=== PATIENT | female | born 1975 | race Asian ===

== ENCOUNTER 2022-06-26 10:10 | Emergency (ER) | payer MEDICARE, OTHER, MEDICAID, SELFPAY ==
[2022-06-26 10:14] VITALS: BP 163/81; PULSE 98; RESP 17; TEMP 36.8; O2SAT 97; BMI 38.9
[2022-06-26 10:46] LABS: COVID19 -Nasal RAPID Negative (Negative)
--- NOTE | 2022-06-26 11:03 | DI.RAD.S_ITS ---
PROCEDURE: XR CHEST 2V INDICATIONS: cough x 1 week TECHNIQUE: 2 views of the chest were acquired. COMPARISON: None. FINDINGS: Surgical changes and devices: None. Lungs and pleura: Lungs are clear. No pleural effusions or pneumothorax. Mediastinum: Mediastinal contours are normal. Heart size is normal. Bones and chest wall: No suspicious bony abnormalities. Soft tissues appear unremarkable. IMPRESSION: No acute pulmonary process. Dictated by: Ina Weller M.D. on 06/26/2022 at 11:32 Approved by: Ina Weller M.D. on 06/26/2022 at 11:32
--- NOTE | 2022-06-26 11:03 | ED.URI ---
HPI - URI/Sore Throat General Chief Complaint: Upper Respiratory Symptoms Stated Complaint: Bad Cough for a Week Time Seen by Provider: 06/26/22 10:54 Source: patient Mode of arrival: Ambulatory History of Present Illness HPI Narrative: Patient is a 46-year-old female history of diabetes presenting today with cough ongoing for about 1 week. Nonproductive worse at night. No shortness of breath or fever. Here with mother who seems to be primary historian. She denies any sore throat. She does have a significant runny nose that is definitely worse at night. No one else has been sick. Related Data Home Medications Medication Instructions Recorded Confirmed aspirin 81 mg tablet,delayed 81 mg PO DAILY 02/01/19 12/10/21 release (Adult Low Dose Aspirin) glipizide 10 mg tablet 10 mg PO DAILY 02/01/19 12/10/21 multivitamin 1 tab PO DAILY 02/01/19 12/10/21 omega-3 fatty acids [Fish Oil PO 02/01/19 12/10/21 Concentrate] sitagliptin 50 mg tablet (Januvia) 100 mg PO DAILY 02/01/19 12/10/21 Respironics Dreamstation CPAP #1 ea 07/07/19 12/10/21 Allergies Allergy/AdvReac Type Severity Reaction Status Date / Time tree and shrub pollen AdvReac Runny Nose Verified 06/26/22 10:19 and Watery Eyes wool AdvReac Red spots Verified 06/26/22 10:19 and Itching Review of Systems Review of Systems Narrative: GENERAL: Denies chills, fatigue, malaise, fever, sweats, travel HEENT: Denies sinus pain, ear pain, sore throat, difficulty swallowing, neck pain RESPIRATORY: See HPI CARDIOVASCULAR: Denies chest pain, palpitations, orthopnea, edema GASTROINTESTINAL: Denies nausea, vomiting, abdominal pain, diarrhea, constipation, melena. : Denies dysuria, frequency, incontinence, hematuria, urinary retention, flank pain. MUSCULOSKELETAL: Denies weakness, joint pain, or bony pain SKIN: No rash, no erythema, no pruritus NEUROLOGIC: Denies weakness, dizziness, headache, numbness, change in speech, confusion PSYCHIATRIC: No concerning psychosocial issues. 12 point review of systems is negative except for those stated above and HPI Patient History Medical History Excessive daytime sleepiness Obesity (BMI 30-39.9) Obstructive sleep apnea Snoring Type 2 diabetes mellitus Social History Smoking Status: Never smoker Smoking Status: Never smoker alcohol intake frequency: 0-2 drinks per day Substance Use Type: does not use Exam Initial Vital Signs Initial Vital Signs: Vital Signs Temperature 98.2 F 06/26/22 10:14 Pulse Rate 98 H 06/26/22 10:14 Respiratory Rate 17 06/26/22 10:14 Blood Pressure 163/81 H 06/26/22 10:14 Pulse Oximetry 97 06/26/22 10:14 Oxygen Delivery Method 06/26/22 10:14 GENERAL: Alert pleasant 46-year-old female and in no acute distress. HEENT: Head atraumatic,EOMI, pupils reactive, face symmetric, moist mucous membranes CARDIOVASCULAR: Regular rate and rhythm without murmurs, rubs or gallops. RESPIRATORY: Breath sounds equal bilaterally, no wheezes rales or rhonchi. ABDOMEN: Soft, nontender. Normoactive bowel sounds all 4 quadrants. No guarding or rebound. EXTREMITIES: Normal range of motion, no clubbing or edema. Neurovascularly intact NEUROLOGICAL: Alert and oriented x4.N SKIN: Warm, dry, no laceration, no petechiae, no rashes or lesions. Course Orders Ordered: ED Orders 06/26/22 10:15 COVID19 -Nasal RAPID/Pre-Proc Stat 06/26/22 11:03 Chest [XR chest 2V] Stat Vital Signs Vital signs: Vital Signs - 8 hr 06/26/22 10:14 06/26/22 11:38 06/26/22 11:40 Temperature 98.2 F Pulse Rate 98 H 88 92 H Respiratory Rate 17 18 Blood Pressure 163/81 H 163/81 H 154/91 H Pulse Oximetry 97 97 97 Oxygen Delivery Method Room Air Room Air Room Air MDM - URI/Sore Throat Lab Data Labs: Lab Results 06/26/22 Range/Units 10:15 SARS-CoV-2 (PCR) Negative (Negative) Imaging Data Chest x-ray: Radiologist's Impression: XRay Report Signed Patient: Nayely Alegria MR#: [id number] : 1975 Acct:[id number] Age/Sex: 46 / F Date of Service: 06/26/22 Loc: ED Accession Number: [id number] ?? Procedure: XR chest 2V Ordering Provider: Monica Green D.O. PROCEDURE:? XR CHEST 2V ? INDICATIONS:? cough x 1 week ? TECHNIQUE:? 2 views of the chest were acquired.? ? COMPARISON:? None. ? FINDINGS:? ? Surgical changes and devices:? None.? ? Lungs and pleura:? Lungs are clear.? No pleural effusions or pneumothorax.? ? Mediastinum:? Mediastinal contours are normal.? Heart size is normal.? ? Bones and chest wall:? No suspicious bony abnormalities.? Soft tissues appear unremarkable.? ? IMPRESSION:? No acute pulmonary process. ? ? Dictated by: Ina Weller M.D. on 06/26/2022 at 11:32 ? ? Approved by: Ina Weller M.D. on 06/26/2022 at 11:32 ? MDM Narrative Medical decision making narrative: Patient has no acute signs of respiratory distress. COVID test is negative says her cough gets worse at night it might be RSV. X-ray does not show any evidence of pneumonia. Probable upper respiratory virus supportive care only. Discharge Plan Departure Patient Disposition: Home Clinical Impression: Viral infection Instructions: DI for Respiratory Distress Syndrome -- Adult Activity Restrictions/Additional Instructions: *You have been diagnosed with respiratory virus *What to do: At this time you may try [id number] Benadryl or allergy medicine to see if that helps dry up some secretions. No pneumonia or COVID at this time. Be sure to stay hydrated *Continue to take medications as directed Tylenol or ibuprofen as directed if needed for pain or fever Benadryl 25-50 mg at nighttime to help with sleeping and cough *Follow up with your primary care provider in 2-3 days or call [phone] *Return to ER if you should have increased shortness of breath cough fever or any new, worsening or concerning symptoms Prescriptions: No Action multivitamin tablet 1 tab PO DAILY glipizide 10 mg tablet 10 mg PO DAILY aspirin [Adult Low Dose Aspirin] 81 mg tablet,delayed release (DR/EC) 81 mg PO DAILY Januvia 50 mg tablet 100 mg PO DAILY omega-3 fatty acids PO (DME) [employer] Dreamstation CPAP Qty: 1 Rx Instructions: Pressure: 6-16 cmH2O DME: [facility] Referrals: Christina Bowman DO [Primary Care Provider] - Visit Report Forms: Patient Portal/API
[2022-06-26 11:38] VITALS: BP 163/81; PULSE 88; RESP 18; O2SAT 97
[2022-06-26 11:40] VITALS: BP 154/91; PULSE 92; O2SAT 97
== END 2022-06-26 11:41 | disposition home or self-care (01) ==
PROVIDERS: Emergency Provider Emergency Medicine; PCP Family Medicine
DX: B34.9 Viral infection, unspecified (principal); Z20.822 Contact with and (suspected) exposure to COVID-19
CPT/HCPCS: 71046; 87635; 99283; C9803

== ENCOUNTER 2022-07-22 01:58 | Emergency (ER) | payer MEDICARE, OTHER, MEDICAID, SELFPAY ==
[2022-07-22 02:37] VITALS: BP 153/87; PULSE 133; RESP 24; TEMP 37.2; O2SAT 97; BMI 36.0
--- NOTE | 2022-07-22 03:52 | ED.PSYCH ---
HPI - Psych <Nikko Hunter DO - Last Filed: 07/23/22 02:44> General Chief Complaint: Psychiatric Symptoms Stated Complaint: SI Time Seen by Provider: 07/22/22 02:07 Source: patient and family Mode of arrival: Ambulatory History of Present Illness HPI Narrative: 46-year-old female nonsmoker with history of diabetes and schizophrenia presents with both parents and a chief complaint of increasingly intrusive auditory and visual hallucinations over the past week or so. She had been relatively stable on her medications but for some reason over the past week or so she is had increasing hallucinations, she states she hears for different voices and thankfully they do not tell her to hurt herself or anybody else. She is not suicidal or homicidal but is becoming significantly affected by the voices, she can not sleep and has not been eating because of the distress it is causing her. She is been taking her medications as prescribed and states that about a week ago or perhaps less she was put on clonidine that does not seem to be making any difference. She had previously been on Abilify but that did not work either. Related Data Home Medications Medication Instructions Recorded Confirmed aspirin 81 mg tablet,delayed 81 mg PO DAILY 02/01/19 12/10/21 release (Adult Low Dose Aspirin) glipizide 10 mg tablet 10 mg PO DAILY 02/01/19 12/10/21 multivitamin 1 tab PO DAILY 02/01/19 12/10/21 omega-3 fatty acids [Fish Oil PO 02/01/19 12/10/21 Concentrate] sitagliptin 50 mg tablet (Januvia) 100 mg PO DAILY 02/01/19 12/10/21 Respironics Dreamstation CPAP #1 ea 07/07/19 12/10/21 Previous Rx's Medication Instructions Recorded olanzapine 10 mg tablet (Zyprexa) 10 mg PO BID PRN Hallucination #30 07/22/22 tabs Allergies Allergy/AdvReac Type Severity Reaction Status Date / Time tree and shrub pollen AdvReac Runny Nose Verified 06/26/22 10:19 and Watery Eyes wool AdvReac Red spots Verified 06/26/22 10:19 and Itching Review of Systems <DO Jus Singh Last Filed: 07/23/22 02:44> Review of Systems Narrative: GENERAL: Denies chills, fatigue, malaise, fever, sweats. HEENT: Denies sinus pain, ear pain, sore throat, difficulty swallowing, dizziness. RESPIRATORY: Denies dyspnea, cough, wheezing, hemoptysis, sputum. CARDIOVASCULAR: Denies chest pain, palpitations, orthopnea, edema, GASTROINTESTINAL: Denies nausea, vomiting, abdominal pain, diarrhea, constipation, melena. : Denies dysuria, frequency, incontinence, hematuria, urinary retention. MUSCULOSKELETAL: denies weakness, joint pain, or bony pain SKIN: Denies rash, skin lesions, or other NEUROLOGIC: Denies weakness, headache, numbness, change in speech, confusion, seizures, incoordination. PSYCHIATRIC: See HPI 12 point review of systems is negative except for those stated above Patient History <Nikko Hunter DO - Last Filed: 07/23/22 02:44> Medical History Excessive daytime sleepiness Obesity (BMI 30-39.9) Obstructive sleep apnea Snoring Type 2 diabetes mellitus Social History Smoking Status: Never smoker Smoking Status: Never smoker alcohol intake frequency: 0-2 drinks per day Substance Use Type: does not use Exam <Nikko Hunter DO - Last Filed: 07/23/22 02:44> Narrative Exam Narrative: GENERAL: [46] year old patient appears stated age. Well-developed patient, in mild distress. Tearful, anxious, clearly upset HEAD: Atraumatic. Normocephalic. EYES: Pupils equal round and reactive. Extraocular motions intact. No scleral icterus. No injection or drainage. ENT: Nose without bleeding, purulent drainage. Throat without erythema, tonsillar hypertrophy or exudate. Airway patent. NECK: Trachea midline. Non tender CARDIOVASCULAR: Regular rate and rhythm without murmurs, gallops, or rubs. RESPIRATORY: Clear to auscultation. Breath sounds equal bilaterally. No wheezes, rales, or rhonchi. GASTROINTESTINAL: Abdomen soft, non-tender, nondistended. EXTREMITIES: No edema or joint tenderness. BACK: Nontender without deformity or crepitance. No flank tenderness. NEURO: AOx3. SKIN: No rash or erythema of visible areas Initial Vital Signs Initial Vital Signs: Vital Signs Temperature 98.9 F 07/22/22 02:37 Pulse Rate 133 H 07/22/22 02:37 Respiratory Rate 24 07/22/22 02:37 Blood Pressure 153/87 H 07/22/22 02:37 Pulse Oximetry 97 07/22/22 02:37 Oxygen Delivery Method 07/22/22 02:37 <Yamil Pitts DO - Last Filed: 07/22/22 17:58> Initial Vital Signs Initial Vital Signs: Vital Signs Temperature 98.9 F 07/22/22 02:37 Pulse Rate 133 H 07/22/22 02:37 Respiratory Rate 24 07/22/22 02:37 Blood Pressure 153/87 H 07/22/22 02:37 Pulse Oximetry 97 07/22/22 02:37 Oxygen Delivery Method 07/22/22 02:37 Course <Nikko Hunter DO - Last Filed: 07/23/22 02:44> Orders Ordered: Discontinued Medications Olanzapine (Olanzapine Odt 10 Mg Tab) 10 mg PO NOW ONE Stop: 07/22/22 04:04 Last Admin: 07/22/22 04:14 Dose: 10 mg Documented By: SB Vital Signs Vital signs: Vital Signs - 8 hr 07/22/22 13:26 Temperature 98.1 F Pulse Rate 89 Respiratory Rate 19 Blood Pressure 111/71 Pulse Oximetry 98 Oxygen Delivery Method Room Air <Yamil Pitts DO - Last Filed: 07/22/22 17:58> Orders Ordered: Discontinued Medications Olanzapine (Olanzapine Odt 10 Mg Tab) 10 mg PO NOW ONE Stop: 07/22/22 04:04 Last Admin: 07/22/22 04:14 Dose: 10 mg Documented By: SB Vital Signs Vital signs: Vital Signs - 8 hr 07/22/22 13:26 Temperature 98.1 F Pulse Rate 89 Respiratory Rate 19 Blood Pressure 111/71 Pulse Oximetry 98 Oxygen Delivery Method Room Air MDM - Psych <Nikko Hunter DO - Last Filed: 07/23/22 02:44> Lab Data Result diagrams: 07/22/22 03:50 07/22/22 03:50 Labs: Lab Results 07/22/22 07/22/22 07/22/22 Range/Units 03:50 03:50 09:35 WBC 12.0 H (4.5-11.0) X10^3/uL RBC 6.22 H (4.0-5.2) X10^6/uL Hgb 15.0 (12.0-16.0) g/dL Hct 45.7 (36-46) % MCV 73.6 L (80-100) fL MCH 24.1 L (26-34) PG MCHC 32.7 (30-36) % RDW 13.4 (11.6-14.8) % Plt Count 320 (150-400) X10^3/uL Neut % (Auto) 75.0 (50-75) % Lymph % (Auto) 16.3 L (25-40) % [place] % (Auto) 6.9 (3-14) % Eos % (Auto) 1.5 L (2-4) % Baso % (Auto) 0.3 (0-2) % Neut # (Auto) 9000 H (9718-4748) /uL Lymph # (Auto) 2000 (4250-0906) /uL [place] # (Auto) 800 (0-900) /uL Eos # (Auto) 200 (0-450) /uL Baso # (Auto) 0 (0-100) /uL Sodium 138 (137-145) mmol/L Potassium 3.7 (3.4-5.1) mmol/L Chloride 103 (98-107) mmol/L Carbon Dioxide 21 L (22-32) mmol/L BUN 15 (7-17) mg/dL Creatinine 0.70 (0.52-1.04) mg/dL Estimated GFR > 60 (>60) mL/min BUN/Creatinine Ratio 21.4 (6-22) Glucose 242 H (70-100) mg/dL Calcium 9.4 (8.4-10.2) mg/dL Total Bilirubin 0.5 (0.2-1.3) mg/dL AST 20 (14-36) IU/L ALT 21 (<35) IU/L Alkaline Phosphatase 92 (38-126) U/L Total Protein 8.3 H (6.3-8.2) g/dL Albumin 4.7 (3.5-5.0) g/dL Globulin 3.6 (1.7-4.1) g/dL Albumin/Globulin Ratio 1.3 (1.0-2.8) Urine RBC (0-5/HPF) Urine WBC (0-5/HPF) Ur Squamous Epith Cells (0-5/HPF) Urine Bacteria (None) Urine Yeast (None) U Opiates 300ng/mL cut Negative (Negative) Ur Oxycodone Screen Negative (Negative) Urine Methadone Screen Negative (Negative) Ur Barbiturates Screen Negative (Negative) U Tricyclic Antidepress Negative (Negative) Ur Phencyclidine Scrn Negative (Negative) Ur Amphetamines Screen Negative (Negative) U Methamphetamines Scrn Negative (Negative) Ur MDMA Scrn (Ecstasy) Negative (Negative) U Benzodiazepines Scrn Negative (Negative) Urine Cocaine Screen Negative (Negative) U Marijuana (THC) Screen Negative (Negative) Ethyl Alcohol < 10 ( - 10) mg/dL 07/22/22 Range/Units 09:35 WBC (4.5-11.0) X10^3/uL RBC (4.0-5.2) X10^6/uL Hgb (12.0-16.0) g/dL Hct (36-46) % MCV (80-100) fL MCH (26-34) PG MCHC (30-36) % RDW (11.6-14.8) % Plt Count (150-400) X10^3/uL Neut % (Auto) (50-75) % Lymph % (Auto) (25-40) % [place] % (Auto) (3-14) % Eos % (Auto) (2-4) % Baso % (Auto) (0-2) % Neut # (Auto) (2633-9118) /uL Lymph # (Auto) (5434-5159) /uL [place] # (Auto) (0-900) /uL Eos # (Auto) (0-450) /uL Baso # (Auto) (0-100) /uL Sodium (137-145) mmol/L Potassium (3.4-5.1) mmol/L Chloride (98-107) mmol/L Carbon Dioxide (22-32) mmol/L BUN (7-17) mg/dL Creatinine (0.52-1.04) mg/dL Estimated GFR (>60) mL/min BUN/Creatinine Ratio (6-22) Glucose (70-100) mg/dL Calcium (8.4-10.2) mg/dL Total Bilirubin (0.2-1.3) mg/dL AST (14-36) IU/L ALT (<35) IU/L Alkaline Phosphatase (38-126) U/L Total Protein (6.3-8.2) g/dL Albumin (3.5-5.0) g/dL Globulin (1.7-4.1) g/dL Albumin/Globulin Ratio (1.0-2.8) Urine RBC 1-5/hpf (0-5/HPF) Urine WBC 10-30/hpf H (0-5/HPF) Ur Squamous Epith Cells 1-5 /hpf (0-5/HPF) Urine Bacteria Moderate (10-30) H (None) Urine Yeast 0-1/hpf (None) U Opiates 300ng/mL cut (Negative) Ur Oxycodone Screen (Negative) Urine Methadone Screen (Negative) Ur Barbiturates Screen (Negative) U Tricyclic Antidepress (Negative) Ur Phencyclidine Scrn (Negative) Ur Amphetamines Screen (Negative) U Methamphetamines Scrn (Negative) Ur MDMA Scrn (Ecstasy) (Negative) U Benzodiazepines Scrn (Negative) Urine Cocaine Screen (Negative) U Marijuana (THC) Screen (Negative) Ethyl Alcohol ( - 10) mg/dL Point of Care Testing Test Results Negative Urine Dip Bedside Urine Glucose 1000 mg/dl Bedside Urine Bilirubin - Negative Bedside Urine Ketone +++ 80 Urine Specific [place] 1.020 Bedside Urine Occult Blood +++ Bedside Urine pH 5.5 Bedside Urine Protein - Negative Bedside Urine Urobilinogen - Negative Bedside Urine Nitrite - Negative Bedside Urine Leukocytes - Negative Esterase <Yamil Pitts, DO - Last Filed: 07/22/22 17:58> Lab Data Labs: Lab Results 07/22/22 07/22/22 07/22/22 Range/Units 03:50 03:50 09:35 WBC 12.0 H (4.5-11.0) X10^3/uL RBC 6.22 H (4.0-5.2) X10^6/uL Hgb 15.0 (12.0-16.0) g/dL Hct 45.7 (36-46) % MCV 73.6 L (80-100) fL MCH 24.1 L (26-34) PG MCHC 32.7 (30-36) % RDW 13.4 (11.6-14.8) % Plt Count 320 (150-400) X10^3/uL Neut % (Auto) 75.0 (50-75) % Lymph % (Auto) 16.3 L (25-40) % [place] % (Auto) 6.9 (3-14) % Eos % (Auto) 1.5 L (2-4) % Baso % (Auto) 0.3 (0-2) % Neut # (Auto) 9000 H (8864-4560) /uL Lymph # (Auto) 2000 (8538-1833) /uL [place] # (Auto) 800 (0-900) /uL Eos # (Auto) 200 (0-450) /uL Baso # (Auto) 0 (0-100) /uL Sodium 138 (137-145) mmol/L Potassium 3.7 (3.4-5.1) mmol/L Chloride 103 (98-107) mmol/L Carbon Dioxide 21 L (22-32) mmol/L BUN 15 (7-17) mg/dL Creatinine 0.70 (0.52-1.04) mg/dL Estimated GFR > 60 (>60) mL/min BUN/Creatinine Ratio 21.4 (6-22) Glucose 242 H (70-100) mg/dL Calcium 9.4 (8.4-10.2) mg/dL Total Bilirubin 0.5 (0.2-1.3) mg/dL AST 20 (14-36) IU/L ALT 21 (<35) IU/L Alkaline Phosphatase 92 (38-126) U/L Total Protein 8.3 H (6.3-8.2) g/dL Albumin 4.7 (3.5-5.0) g/dL Globulin 3.6 (1.7-4.1) g/dL Albumin/Globulin Ratio 1.3 (1.0-2.8) Urine RBC (0-5/HPF) Urine WBC (0-5/HPF) Ur Squamous Epith Cells (0-5/HPF) Urine Bacteria (None) Urine Yeast (None) U Opiates 300ng/mL cut Negative (Negative) Ur Oxycodone Screen Negative (Negative) Urine Methadone Screen Negative (Negative) Ur Barbiturates Screen Negative (Negative) U Tricyclic Antidepress Negative (Negative) Ur Phencyclidine Scrn Negative (Negative) Ur Amphetamines Screen Negative (Negative) U Methamphetamines Scrn Negative (Negative) Ur MDMA Scrn (Ecstasy) Negative (Negative) U Benzodiazepines Scrn Negative (Negative) Urine Cocaine Screen Negative (Negative) U Marijuana (THC) Screen Negative (Negative) Ethyl Alcohol < 10 ( - 10) mg/dL 07/22/22 Range/Units 09:35 WBC (4.5-11.0) X10^3/uL RBC (4.0-5.2) X10^6/uL Hgb (12.0-16.0) g/dL Hct (36-46) % MCV (80-100) fL MCH (26-34) PG MCHC (30-36) % RDW (11.6-14.8) % Plt Count (150-400) X10^3/uL Neut % (Auto) (50-75) % Lymph % (Auto) (25-40) % [place] % (Auto) (3-14) % Eos % (Auto) (2-4) % Baso % (Auto) (0-2) % Neut # (Auto) (7924-8693) /uL Lymph # (Auto) (2285-0287) /uL [place] # (Auto) (0-900) /uL Eos # (Auto) (0-450) /uL Baso # (Auto) (0-100) /uL Sodium (137-145) mmol/L Potassium (3.4-5.1) mmol/L Chloride (98-107) mmol/L Carbon Dioxide (22-32) mmol/L BUN (7-17) mg/dL Creatinine (0.52-1.04) mg/dL Estimated GFR (>60) mL/min BUN/Creatinine Ratio (6-22) Glucose (70-100) mg/dL Calcium (8.4-10.2) mg/dL Total Bilirubin (0.2-1.3) mg/dL AST (14-36) IU/L ALT (<35) IU/L Alkaline Phosphatase (38-126) U/L Total Protein (6.3-8.2) g/dL Albumin (3.5-5.0) g/dL Globulin (1.7-4.1) g/dL Albumin/Globulin Ratio (1.0-2.8) Urine RBC 1-5/hpf (0-5/HPF) Urine WBC 10-30/hpf H (0-5/HPF) Ur Squamous Epith Cells 1-5 /hpf (0-5/HPF) Urine Bacteria Moderate (10-30) H (None) Urine Yeast 0-1/hpf (None) U Opiates 300ng/mL cut (Negative) Ur Oxycodone Screen (Negative) Urine Methadone Screen (Negative) Ur Barbiturates Screen (Negative) U Tricyclic Antidepress (Negative) Ur Phencyclidine Scrn (Negative) Ur Amphetamines Screen (Negative) U Methamphetamines Scrn (Negative) Ur MDMA Scrn (Ecstasy) (Negative) U Benzodiazepines Scrn (Negative) Urine Cocaine Screen (Negative) U Marijuana (THC) Screen (Negative) Ethyl Alcohol ( - 10) mg/dL Point of Care Testing Test Results Negative Urine Dip Bedside Urine Glucose 1000 mg/dl Bedside Urine Bilirubin - Negative Bedside Urine Ketone +++ 80 Urine Specific [place] 1.020 Bedside Urine Occult Blood +++ Bedside Urine pH 5.5 Bedside Urine Protein - Negative Bedside Urine Urobilinogen - Negative Bedside Urine Nitrite - Negative Bedside Urine Leukocytes - Negative Esterase MDM Narrative Medical decision making narrative: Dr pitts: Received turned over. Reviewed patient's history and physical and labs. She is medically cleared. She does state that she is feeling better after the Zyprexa. Has been seen by social work. Decisions made not to admit to the hospital. Will sent home with a prescription of Zyprexa. She is a follow-up with her mental health provider in approximately 2 weeks. She is being discharged with family. We discussed return precautions and follow-up instructions. Patient expressed understanding and agreement. Family at bedside for the discussion and they are in agreement as well. Discharge Plan Departure Patient Disposition: Home Clinical Impression: Hallucinations Instructions: DI for Schizophrenia Activity Restrictions/Additional Instructions: Continue to take all of your medications as directed use the new medication as needed. It is important that you follow-up with your mental health provider as previously scheduled. Return to the emergency department for any new or worsening symptoms. Prescriptions: New olanzapine [Zyprexa] 10 mg tablet 10 mg PO BID PRN (Reason: Hallucination) Qty: 30 0RF No Action multivitamin tablet 1 tab PO DAILY glipizide 10 mg tablet 10 mg PO DAILY aspirin [Adult Low Dose Aspirin] 81 mg tablet,delayed release (DR/EC) 81 mg PO DAILY Januvia 50 mg tablet 100 mg PO DAILY omega-3 fatty acids PO (DME) [employer] Dreamstation CPAP Qty: 1 Rx Instructions: Pressure: 6-16 cmH2O DME: [facility] Referrals: Christina Bowman DO [Primary Care Provider] - Visit Report Forms: Patient Portal/API
--- NOTE | 2022-07-22 04:11 | PC.NURSE ---
Dad leaving for the evening - allowed to bring the patient's dog to the bedside to say shaka - per family and patient, the dog helps to calm her and keep her calm
[2022-07-22] MEDS: OLANZapine ODT 10 MG TAB PO (04:14)
[2022-07-22 04:15] LABS: Add Manual Diff / Slide Review NO; Basophils Absolute Auto 0 /uL (0-100); Basophils Percent Auto 0.3 % (0-2); Eosinophils Absolute Auto 200 /uL (0-450); Eosinophils Percent Auto 1.5 % (2-4); Hematocrit 45.7 % (36-46); Lymphocytes Absolute Auto 2000 /uL (1100-4500); Lymphocytes Percent Auto 16.3 % (25-40); Mean Corpuscular HGB Conc 32.7 % (30-36); Mean Corpuscular Hemoglobin 24.1 PG (26-34); Mean Corpuscular Volume 73.6 fL (80-100); Monocytes Absolute Auto 800 /uL (0-900); Monocytes Percent Auto 6.9 % (3-14); Neutrophils Absolute Auto 9000 /uL (1500-7000); Platelet Count 320 X10^3/uL (150-400); Red Blood Cell Count 6.22 X10^6/uL (4.0-5.2); Red Cell Distribution Width 13.4 % (11.6-14.8)
[2022-07-22 04:31] LABS: Alanine Aminotransferase 21 IU/L (<35); Albumin 4.7 g/dL (3.5-5.0); Albumin Globulin Ratio 1.3 (1.0-2.8); Alkaline Phosphatase 92 U/L (38-126); Aspartate Aminotransferase 20 IU/L (14-36); BUN Creatinine Ratio 21.4 (6-22); Bilirubin Total 0.5 mg/dL (0.2-1.3); Blood Urea Nitrogen 15 mg/dL (7-17); Calcium 9.4 mg/dL (8.4-10.2); Carbon Dioxide 21 mmol/L (22-32); Chloride 103 mmol/L (98-107); Estimated Glomerular Filt Rate > 60 mL/min (>60); Ethanol (ETOH) < 10 mg/dL; Globulin 3.6 g/dL (1.7-4.1); Glucose 242 mg/dL (70-100); HEMOLYSIS < 15 (0-50); Potassium 3.7 mmol/L (3.4-5.1); Sodium 138 mmol/L (137-145); Total Protein 8.3 g/dL (6.3-8.2)
--- NOTE | 2022-07-22 04:45 | PC.NURSE ---
given po water and popsicle - states that she is still hearing the voices - reassured - stays calm
--- NOTE | 2022-07-22 05:15 | PC.NURSE ---
States that the voices are still there and they are worse at this time - reassured - pt able to stay calm - not tearful at this time - uses phone and hugs stuffed animal for self comfort
--- NOTE | 2022-07-22 05:45 | PC.NURSE ---
Continues to complain of voices - given a popsicle at her request - continues to remain calm and easily redirectable
--- NOTE | 2022-07-22 06:30 | PC.NURSE ---
Resting quietly in stretcher in NAD - lights remain on at pt's request - no needs voiced - PWD with respirations equal and unlabored bilaterally - calm and cooperative
--- NOTE | 2022-07-22 07:15 | PC.NURSE ---
Report to dayshift RN team - pt resting quietly with eyes closed - calm
[2022-07-22 08:38] VITALS: BP 105/61; PULSE 101; TEMP 36.6; O2SAT 95
[2022-07-22 09:53] LABS: Ur Creatinine Normal (Normal); Ur Specific Gravity Normal (Normal); Urine pH Normal (Normal)
[2022-07-22 09:54] LABS: UR Morphine/Opiate cutoff 300 Negative (Negative); Urine Amphetamines Negative (Negative); Urine Barbiturates Negative (Negative); Urine Benzodiazepines Negative (Negative); Urine Cocaine Negative (Negative); Urine MDMA Negative (Negative); Urine Methadone Negative (Negative); Urine Methamphetamines Negative (Negative); Urine Oxycodone Negative (Negative); Urine Phencyclidine Negative (Negative); Urine Tetrahydrocannabinol Negative (Negative); Urine Tricyclic Antidepressant Negative (Negative)
[2022-07-22 10:04] LABS: RBC Urine 1-5/HPF (0-5/HPF); WBC Urine 10-30/HPF (0-5/HPF)
[2022-07-22 10:05] LABS: Bacteria Urine Moderate (10-30); Squamous Epithelial Cell Urine 1-5 /HPF (0-5/HPF)
--- NOTE | 2022-07-22 13:13 | CM.SWNOTE ---
SKILLED NURSING CASE MANAGER - Brand Lead Assessment SKILLED NURSING CASE MANAGER - Brand Lead Assessment Start: 07/22/22 12:58 Freq: Status: Active Protocol: Document 07/22/22 12:58 TM (Rec: 07/22/22 13:13 TM [id number]) SKILLED NURSING CASE MANAGER/Brand Lead Assessment Time Spent with Patient Start date 07/22/22 Visit Start Time 12:10 End date 07/22/22 Visit End Time 12:58 Mental Health Screening Include Onset, Duration, Intensity Presenting Problem Pt presents with increasing uncontrolled auditory hallucinations. Precipitating Event(s) Pt has a history of schizophrenia and has had recent medication changes. Pt' s father reports that pt's bupropion was increased from 300mg to 450mg approximately 2 -3 weeks ago. Pt was also started on clonidine at that time. Since this change in medication, pt reports increasing auditory hallucinations. Pt denies command hallucinations but just reports that they are bothersome and say, I'm going to get you. Patient Strengths Supportive family. Current Behavioral Health Provider(s) JULIO C Boss Include Facility, Provider, Ph. # [facility] [phone] Psych. Hx Mental Health and Chemical schizophrenia Dependency Family Hx of Behavioral Abuse none. Psychiatric Hospitalizations (date(s)/ none. location) Psychosocial information & Support parents with whom pt lives. Systems Mental Status Orientation (Person/Place/Time) Pt is oriented to person, place, and time. Stated Mood Pt reports that she is feeling better now after sleeping and after receiving zyprexa last night. Affect (Congruent with Mood?) Broad. Thought Content - Specify/Describe Pt endorsing some auditory Obsessions, Delusions, Hallucinations hallunications but reports that they aren't intrusive at this time. Thought Processes (Qdzzfgj-Qdfsjgrc-Rxvx logical. Udvecipg-Ghcpmvzr-Deicdiprqe- Mibjpbotweyfmn-Tipssrk-Hnwsmfzxkinu- Thought Blocking) Speech (Ixhnzt-Loqn-Fwzcgvz-Rapid-Soft- normal. Loud-Pressured) Motor (Vetisl-Ywrrghled-Sorn-Other) normal. Insight (Zdey-Yhgg-Drpo/Limited) fair. Judgement (Ukuw-Qbyn-Ktmv/Limited) fair, congruent with developmental delay. Impulse Control (Adequate-Impaired) good. Memory (Stdjphkow-Fpcrsb-Aytdpx, intact. Impaired-Intact) Concentration (Intact-Impaired) Intact. Attention (Intact-Impaired) intact. Behavior (Appropriate-Inappropriate) appropriate. Risk Assessment Suicidal Ideation (Plan) No Homicidal Ideation (Plan) No Intervention Intervention BRITT me with pt and family to discuss presentation to ED. Pt reports that the zyprexa helped greatly. Pt's parents are concerned that medications aren't consistently treating psychosis. BRITT confirmed with parents that pt has follow up with oral surgery assistant Rosalind Burnett on 07/30. BRITT called Rosalind and left a voicemail requesting a call back to attempt to get an earlier appointment. BRTIT discussed with ED provider, who suggested PRN zyprexa to control AH until pt's next follow up with [facility]. Family agreeable to this plan. Plan RA Plan Pt will discharge home with parents with PRN zyprexa for uncontrolled AH.
[2022-07-22 13:26] VITALS: BP 111/71; PULSE 89; RESP 19; TEMP 36.7; O2SAT 98
== END 2022-07-22 13:30 | disposition home or self-care (01) ==
PROVIDERS: Emergency Medicine; Emergency Provider Emergency Medicine; PCP Family Medicine
DX: R44.3 Hallucinations, unspecified (principal)
CPT/HCPCS: 36415; 80053; 80305; 80320; 81003; 81015; 81025; 85025; 87086; 99284